=== PATIENT | female | born 1985 | race Caucasian/White ===

== ENCOUNTER 2017-04-18 00:32 | Emergency (ER) | payer OTHER ==
[~2017-04-18 00:32] MED LIST: ALBUTEROL SULF8.5 G1 IH; CLARITIN5 MG PO; LISINOPRIL10 MG PO; MOTRIN600 MG PO; MULTI VITAMIN1 EAC1 PO; NORCO 5/3251 TA2 PO; PREDNISONE20 MG PO; TRIAMCINOLONE A15 GM TP; TYLENOL325 MG PO; VALTREX1000 MG PO
[2017-04-18] MEDS ORDERED: PROAIR HFA8.5 GM IH (00:52)
[2017-04-18] MEDS ORDERED: ADVAIR 100-501 EACH PO (00:52)
== END 2017-04-18 02:36 ==
LOC: EDMED 00:32
DX: M25.472 Effusion, left ankle (principal); M79.672 Pain in left foot; Z87.891 Personal history of nicotine dependence; J45.909 Unspecified asthma, uncomplicated